=== PATIENT | female | born 1985 ===

== ENCOUNTER 2019-07-27 05:47 | Outpatient (CLI) | payer OTHER ==
[~2019-07-27] VITALS: Ht 157 cm; Wt 72.7 kg
[2019-07-27] MEDS ORDERED: NORG1TAB14 PO (10:30)
== END 2019-07-27 10:38 ==
LOC: PREOP 05:47
PROVIDERS: ATTEND Obstetrics & Gynecology
DX: Z01.818 Encounter for other preprocedural examination (principal)